=== PATIENT | female | born 1950 | race Caucasian/White ===

== ENCOUNTER → 2019-02-01 12:48 | Outpatient (CLI) | payer OTHER, MEDICAID, SELFPAY ==
--- NOTE | 2019-02-01 | DI.RAD.S_ITS ---
PROCEDURE: FL BARIUM SWALLOW INDICATIONS: SCLERODERMA COMPARISON: [facility], , BARIUM SWALLOW, 11/06/2014, 14:12. [facility], , BARIUM SWALLOW WITH SPEECH, 08/29/2013, 14:45. [facility], CR, XR PELVIS WITH LATERAL HIP RIGHT, 11/05/2018, 14:54. FINDINGS: Function: There is mild esophageal dysmotility. Moderate gastroesophageal reflux was elicited. There is obstruction of a calibrated barium tablet in the distal esophagus just above the gastroesophageal junction. Morphology: Air-contrast images demonstrate normal mucosal morphology. Single contrast views show no esophageal extrinsic mass effects, or diverticula. There is a short segment focal stricture in the distal esophagus causing obstruction of the penetrated barium pill. A small sliding hiatal hernia is noted, as seen on the last exam. Limited images of the stomach demonstrate normal appearance. IMPRESSION: 1. There is short segment stricture of the distal esophagus causing obstruction of the calibrated barium pill. This is more severe compared to the last exam dated 11/06/2014. A EGD is suggested for followup. 2. Mild esophageal dysmotility. 3. Moderate gastroesophageal reflux 4. Small hiatal hernia. Dictated by: Nancy Lowry M.D. on 02/01/2019 at 15:03 Approved by: Nancy Lowry M.D. on 02/01/2019 at 15:09
== END ==
PROVIDERS: Family Provider Family Medicine; PCP Family Medicine; Visit Provider Internal Medicine Rheumatology
DX: M34.9 Systemic sclerosis, unspecified (principal); K22.4 Dyskinesia of esophagus; K21.9 Gastro-esophageal reflux disease without esophagitis; K44.9 Diaphragmatic hernia without obstruction or gangrene
CPT/HCPCS: 74220

== ENCOUNTER 2019-06-29 13:32 | Emergency (ER) | payer OTHER, MEDICAID, SELFPAY ==
[2019-06-29 13:42] VITALS: BP 115/41; PULSE 87; RESP 16; TEMP 37; O2SAT 100; BMI 22.8
--- NOTE | 2019-06-29 14:23 | DI.US.S_ITS ---
ULTRASOUND OF RIGHT BREAST: 06/29/2019 CLINICAL: Rt breast pain and redness with swelling. Clinical exam demonstrated firmness as well. No prior exams were available for comparison. Real-time ultrasound of the right breast was performed. Christopher scale images of the real-time examination were reviewed. No abnormalities were seen sonographically in the right breast. There is mild diffuse skin thickening. Do findings to suggest disturbed parenchymal echotexture. No focal fluid collection or mass lesion. Right breast implant limits evaluation of the deeper tissues of the right breast. IMPRESSION: INCOMPLETE: NEEDS ADDITIONAL IMAGING EVALUATION There is minimal diffuse skin thickening but no abnormality seen in the right breast to correspond with the area of clinical concern and pain, however, clinical followup is recommended given reported history of redness, pain, and diffuse firmness that may be related to her breast implant. Patient is going to receive a course of antibiotics for presumed diagnosis of mastitis/cellulitis. She will return in approximately 4 weeks to document resolution of findings and for completion of her diagnostic imaging as she needs to have a bilateral diagnostic mammogram. FIndings and recommendations were discussed with Dr. Wright of the emergency department at 1610 hrs. This exam was interpreted at Station ID: [id number]. Electronically Signed By: Jasiel Finley M.D. aty/:06/29/2019 16:51:55 letter sent: Additional Imaging Needed Ultrasound BI-RADS: 0 Indeterminate
[2019-06-29 14:29] LABS: Add Manual Diff / Slide Review NO; Basophils Absolute Auto 200 /uL (0-100); Eosinophils Absolute Auto 100 /uL (0-450); Eosinophils Percent Auto 0.7 % (2-4); Hematocrit 38.6 % (36-46); Lymphocytes Absolute Auto 2300 /uL (1100-4500); Lymphocytes Percent Auto 25.1 % (25-40); Mean Corpuscular HGB Conc 33.8 % (30-36); Mean Corpuscular Hemoglobin 30.4 PG (26-34); Mean Corpuscular Volume 90.1 fL (80-100); Monocytes Absolute Auto 1000 /uL (0-900); Monocytes Percent Auto 11.2 % (3-14); Neutrophils Absolute Auto 5500 /uL (1500-7000); Platelet Count 159 X10^3/uL (150-400); Red Blood Cell Count 4.28 X10^6/uL (4.0-5.2); Red Cell Distribution Width 12.7 % (11.6-14.8)
[2019-06-29 14:35] LABS: Alanine Aminotransferase 18 IU/L (9-52); Albumin Globulin Ratio 1.4 (1.0-2.8); Alkaline Phosphatase 65 U/L (38-126); Aspartate Aminotransferase 20 IU/L (14-36); Bilirubin Total 0.5 mg/dL (0.2-1.3); Blood Urea Nitrogen 13 mg/dL (7-17); Calcium 8.9 mg/dL (8.4-10.2); Carbon Dioxide 28 mmol/L (22-32); Chloride 103 mmol/L (98-107); Estimated Glomerular Filt Rate > 60.0 mL/min (>60); Globulin 2.8 g/dL (1.7-4.1); Glucose 104 mg/dL (80-110); HEMOLYSIS 17 (0-50); Potassium 4.1 mmol/L (3.4-5.1); Sodium 140 mmol/L (137-145); Total Protein 6.8 g/dL (6.3-8.2)
[2019-06-29] MEDS: KETOROLAC 60 MG/2 ML VIAL 30 MG IV (14:49)
[2019-06-29] MEDS: SODIUM CHLORIDE 0.9% 1,000 ML 1000 ML IV (14:49)
--- NOTE | 2019-06-29 15:07 | ED_ITS ---
HPI - Skin/Abscess/Foreign Bdy <Leonela GoodenFREDRICK - Last Filed: 07/01/19 14:18> General Chief complaint: Skin/Abscess/Foreign Body Stated complaint: right breast is swelling and lots of pain Time Seen by Provider: 06/29/19 13:57 Source: patient Mode of arrival: ambulatory Limitations: no limitations History of Present Illness HPI narrative: 69-year-old female with history of scleroderma and breast implants (30 yrs ago), presents emergency department today complaining of right breast swelling, redness, increased warmth, and pain starting 2 days ago. She states the pain is a 10/10 dull ache that is worse with palpation and movement. She took tramadol last night but did not have any pain relief. She reported associated chills but no fevers. She denies nipple discharge, trauma, vomiting, abdominal pain, chest pain, shortness of breath, syncope, malaise, dysuria, vaginal discharge, or change in bowel or bladder habits. She stated she recently finished as Solu-Medrol pack about 3 days. MD complaint: discoloration Onset (ago): day(s) Location: chest (R breast) Severity: severe Severity scale (1-10): 10 Quality: aching Pain Consistency: constant Relieving factors: none Exacerbating factors: movement Context: none Associated symptoms: chills Related Data Home Medications Medication Instructions Recorded Confirmed baclofen 10 mg PO DAILY 06/29/19 06/29/19 diclofenac sodium 1 applic TOPICAL DIRECTED 06/29/19 06/29/19 divalproex 250 mg PO TID 06/29/19 06/29/19 escitalopram oxalate 20 mg PO DAILY 06/29/19 06/29/19 estradiol 1 patch TRANSDERMAL QWEEK 06/29/19 06/29/19 levothyroxine 50 mcg PO DAILY 06/29/19 06/29/19 oxycodone 5 mg PO PRN PRN 06/29/19 06/29/19 tramadol 50 mg PO Q4H PRN 06/29/19 06/29/19 zolpidem 10 mg PO BEDTIME 06/29/19 06/29/19 Previous Rx's Medication Instructions Recorded clindamycin HCl 450 mg PO TID 10 Days #90 cap 06/29/19 oxycodone-acetaminophen [Percocet] 1 tab PO Q4-6H PRN #10 tab 06/29/19 Allergies Allergy/AdvReac Type Severity Reaction Status Date / Time No Known Drug Allergies Allergy Verified 06/29/19 13:42 Review of Systems <FREDRICK Turner - Last Filed: 07/01/19 14:18> Review of Systems REVIEW OF SYSTEMS: GENERAL: Denies fever or chills. HENT: No head trauma, hearing loss or sore throat. EYES: No loss of vision, double vision, eye pain, or irritation. CHEST: Complains of right breast swelling, see HPI. CARDIOVASCULAR: No chest pain or syncope. RESPIRATORY: No shortness of breath or cough. GASTROINTESTINAL: No nausea, vomiting, diarrhea, or constipation. GENITOURINARY: No flank pain or dysuria. MUSCULOSKELETAL: No pain, weakness, or deformities. INTEGUMENTARY: Complains of redness, denies lesions or pruritus. NEURO: No numbness, tingling, memory loss, or confusion. PSYCH: No behavior or mood changes. PFSH <FREDRICK Turner - Last Filed: 07/01/19 14:18> Medical History Scleroderma (Acute) Social History Smoking Status: Never smoker Social History Smoking Status: Never smoker Exam <FREDRICK Turner - Last Filed: 07/01/19 14:18> Initial Vital Signs Initial Vital Signs: Vital Signs Temperature 98.6 F 06/29/19 13:42 Pulse Rate 87 06/29/19 13:42 Respiratory Rate 16 06/29/19 13:42 Blood Pressure 115/41 L 06/29/19 13:42 Pulse Oximetry 100 06/29/19 13:42 PHYSICAL EXAMINATION: GENERAL: Well groomed, alert, and cooperative. is at bedside during the examination. Answers questions promptly and appropriately. Vital signs noted. HENT: Normocephalic, atraumatic. Hearing intact. Oral mucosa is pink and moist. EYES: Conjunctiva pink, sclera white, no periorbital swelling. CHEST: Normal to inspection and without deformities. BREAST: Enlarged right breast, erythema noted to lateral and inferior aspect of the breast From 1200 to 800, tissue was hard to palpation without noticeable masses. Patient reported tenderness with palpation. No nipple discharge or discoloration, no lesions, no ulcerations, or rashes. CARDIOVASCULAR: S1 and S2 sounds normal. Regular rate and rhythm, no murmurs, clicks, or bruits. No pedal edema. RESPIRATORY: Normal respiratory rate, trachea midline, airway patent. No stridor, nasal flaring or accessory muscle use. Lungs are clear in all celaya without wheeze, rhonchi, or crackles. GASTROINTESTINAL: Bowel sounds normoactive. Abdomen is soft and non-tender. No organomegaly. MUSCULOSKELETAL: Normal gait and coordination. Equal tone and mass bilaterally. EXTREMITIES: CMS intact. Moves all extremities. SKIN: Warm, dry, soft, appropriate color for ethnicity. No lesions, rashes, or wounds. NEURO: Alert and Oriented X 3. Good coordination. No ataxia, or sensory deficits, or cognitive issues. PSYCH: Appropriate affect and mood. <Nena Wright DO - Last Filed: 07/03/19 18:14> Initial Vital Signs Initial Vital Signs: Vital Signs Temperature 98.6 F 06/29/19 13:42 Pulse Rate 87 06/29/19 13:42 Respiratory Rate 16 06/29/19 13:42 Blood Pressure 115/41 L 06/29/19 13:42 Pulse Oximetry 100 06/29/19 13:42 Course <FREDRICK Turner - Last Filed: 07/01/19 14:18> Orders Ordered: Discontinued Medications Sodium Chloride (Normal Saline 0.9%) 1,000 mls @ 1,000 mls/hr IV BOLUS ONE Stop: 06/29/19 15:22 Last Infusion: 06/29/19 16:51 Dose: 0 mls/hr Admin: 06/29/19 14:49 Dose: 1,000 mls/hr Clindamycin Phosphate (Cleocin) 600 mg in 50 mls @ 50 mls/hr IV NOW ONE Stop: 06/29/19 16:01 Last Infusion: 06/29/19 16:51 Dose: 0 mls/hr Admin: 06/29/19 15:08 Dose: 50 mls/hr Ketorolac Tromethamine (Toradol) 30 mg IV NOW ONE Stop: 06/29/19 14:24 Last Admin: 06/29/19 14:49 Dose: 30 mg Morphine Sulfate (Morphine) 4 mg IV NOW ONE Stop: 06/29/19 15:34 Last Admin: 06/29/19 15:44 Dose: 4 mg Consultations Consultation #1: Initially radiology as clarified that he was unable to fully interpret a breast ultrasound Rony mammogram. Spoke with mammogram services, they reported that patient was could only schedule a mammogram as an outpatient and must have prior studies sent to the department before her testing. Dr. Wright then spoke with Radiology requesting that an ultrasound be done to look for cysts or abscesses, with the understanding that a mammogram ask be completed a later date rule out malignancy. Patient was instructed about the importance of a followup mammogram within the next few weeks, she understood and will be in communication with her primary care provider. She was also given contact information for [facility] mammogram services to schedule an appointment herself. Time: 15:00 Consultation #2: Consultation occurred with Dr. Wright about diagnostics and plan of care. Time: 14:00 Vital Signs - 8 hr 06/29/19 13:42 06/29/19 16:00 06/29/19 17:11 Temperature 98.6 F Pulse Rate 87 75 84 Respiratory Rate 16 16 Blood Pressure 115/41 L 105/83 Blood Pressure [Left Arm] 113/73 Pulse Oximetry 100 95 98 <Nena Wright, DO - Last Filed: 07/03/19 18:14> Orders Ordered: Discontinued Medications Sodium Chloride (Normal Saline 0.9%) 1,000 mls @ 1,000 mls/hr IV BOLUS ONE Stop: 06/29/19 15:22 Last Infusion: 06/29/19 16:51 Dose: 0 mls/hr Admin: 06/29/19 14:49 Dose: 1,000 mls/hr Clindamycin Phosphate (Cleocin) 600 mg in 50 mls @ 50 mls/hr IV NOW ONE Stop: 06/29/19 16:01 Last Infusion: 06/29/19 16:51 Dose: 0 mls/hr Admin: 06/29/19 15:08 Dose: 50 mls/hr Ketorolac Tromethamine (Toradol) 30 mg IV NOW ONE Stop: 06/29/19 14:24 Last Admin: 06/29/19 14:49 Dose: 30 mg Morphine Sulfate (Morphine) 4 mg IV NOW ONE Stop: 06/29/19 15:34 Last Admin: 06/29/19 15:44 Dose: 4 mg Vital Signs - 8 hr 06/29/19 13:42 06/29/19 16:00 06/29/19 17:11 Temperature 98.6 F Pulse Rate 87 75 84 Respiratory Rate 16 16 Blood Pressure 115/41 L 105/83 Blood Pressure [Left Arm] 113/73 Pulse Oximetry 100 95 98 MDM - Skin/Abscess/Foreign Bdy <Leonela FREDRICK Gooden - Last Filed: 07/01/19 14:18> Medical Records Attestation: I reviewed the patient's medical records. Lab Data Attestation: I reviewed the patient's lab results. Result diagrams: 06/29/19 14:15 06/29/19 14:15 Lab Results 06/29/19 06/29/19 Range/Units 14:15 14:15 WBC 9.0 (4.5-11.0) X10^3/uL RBC 4.28 (4.0-5.2) X10^6/uL Hgb 13.0 (12.0-16.0) g/dL Hct 38.6 (36-46) % MCV 90.1 (80-100) fL MCH 30.4 (26-34) PG MCHC 33.8 (30-36) % RDW 12.7 (11.6-14.8) % Plt Count 159 (150-400) X10^3/uL Neut % (Auto) 61.0 (50-75) % Lymph % (Auto) 25.1 (25-40) % [place] % (Auto) 11.2 (3-14) % Eos % (Auto) 0.7 L (2-4) % Baso % (Auto) 2.0 (0-2) % Neut # (Auto) 5500 (4628-4406) /uL Lymph # (Auto) 2300 (5092-3644) /uL [place] # (Auto) 1000 H (0-900) /uL Eos # (Auto) 100 (0-450) /uL Baso # (Auto) 200 H (0-100) /uL Sodium 140 (137-145) mmol/L Potassium 4.1 (3.4-5.1) mmol/L Chloride 103 (98-107) mmol/L Carbon Dioxide 28 (22-32) mmol/L BUN 13 (7-17) mg/dL Creatinine 0.50 L (0.52-1.04) mg/dL Estimated GFR > 60.0 (>60) mL/min BUN/Creatinine Ratio 26.0 H (6-22) Glucose 104 (80-110) mg/dL Calcium 8.9 (8.4-10.2) mg/dL Total Bilirubin 0.5 (0.2-1.3) mg/dL AST 20 (14-36) IU/L ALT 18 (9-52) IU/L Alkaline Phosphatase 65 (38-126) U/L Total Protein 6.8 (6.3-8.2) g/dL Albumin 4.0 (3.5-5.0) g/dL Globulin 2.8 (1.7-4.1) g/dL Albumin/Globulin Ratio 1.4 (1.0-2.8) Imaging Data Breast US: Radiologist's impression: An official report of the rest ultrasound was not submitted as Radiology stated he would need a mammogram to fully interpreted, however he call and talk to Dr. Wright, stating that they did not appear to be any abscess or cyst formation that was seen on the ultrasound. These findings and limitations were discussed with the patient and her . MDM Narrative Medical decision making narrative: Differential includes mastitis (most likely due short onset of symptoms, significant erythema and swelling, increased warmth, increased pain with palpation), rupture of breast implant however swelling and inflammation indicate associated infection, allergic reaction to plastic implant (less likely due to lack of perforated, and the rapid onset), and malignancy including inflammatory breast cancer (less likely due to rapid onset, however we cannot rule this out and she is able to get a mammogram which cannot be done in the emergency department, she is at increased risk because she takes caused region, it is more difficult to renal ultrasound with an implant, but my suspicion is decreased due to lack of lesions or nipple discharge.) Extensive conversation was had with the patient and her about the importance of obtaining an ultrasound as soon as possible. Patient's family verbalized understanding. We discussed that the most immediately dangerous thing for her at this time would be to leave an infection untreated, thus clindamycin was prescribed due to poor visualization of breath and concern for infected implant. I explained to patient a could not rule out a mass without mammogram/ Strict return precautions were given to patient and follow-up instructions discussed. <Nena Wright, DO - Last Filed: 07/03/19 18:14> Lab Data Lab Results 06/29/19 06/29/19 Range/Units 14:15 14:15 WBC 9.0 (4.5-11.0) X10^3/uL RBC 4.28 (4.0-5.2) X10^6/uL Hgb 13.0 (12.0-16.0) g/dL Hct 38.6 (36-46) % MCV 90.1 (80-100) fL MCH 30.4 (26-34) PG MCHC 33.8 (30-36) % RDW 12.7 (11.6-14.8) % Plt Count 159 (150-400) X10^3/uL Neut % (Auto) 61.0 (50-75) % Lymph % (Auto) 25.1 (25-40) % [place] % (Auto) 11.2 (3-14) % Eos % (Auto) 0.7 L (2-4) % Baso % (Auto) 2.0 (0-2) % Neut # (Auto) 5500 (9726-5806) /uL Lymph # (Auto) 2300 (2917-1189) /uL [place] # (Auto) 1000 H (0-900) /uL Eos # (Auto) 100 (0-450) /uL Baso # (Auto) 200 H (0-100) /uL Sodium 140 (137-145) mmol/L Potassium 4.1 (3.4-5.1) mmol/L Chloride 103 (98-107) mmol/L Carbon Dioxide 28 (22-32) mmol/L BUN 13 (7-17) mg/dL Creatinine 0.50 L (0.52-1.04) mg/dL Estimated GFR > 60.0 (>60) mL/min BUN/Creatinine Ratio 26.0 H (6-22) Glucose 104 (80-110) mg/dL Calcium 8.9 (8.4-10.2) mg/dL Total Bilirubin 0.5 (0.2-1.3) mg/dL AST 20 (14-36) IU/L ALT 18 (9-52) IU/L Alkaline Phosphatase 65 (38-126) U/L Total Protein 6.8 (6.3-8.2) g/dL Albumin 4.0 (3.5-5.0) g/dL Globulin 2.8 (1.7-4.1) g/dL Albumin/Globulin Ratio 1.4 (1.0-2.8) Discharge Plan Departure Patient Disposition: Home Clinical Impression: Acute mastitis Discharge Date/Time: 06/29/19 17:12 Interventions: ED Discharge Assessment Last Done: 06/29/19 17:11 Instructions: DI for Mastitis Activity Restrictions/Additional Instructions: Thank you for entrusting me with your care today. As discussed, it appears that you have an infection in your right breast, I prescribed you antibiotics and pain medication. Please take these antibiotics until they are complete. Due to the ultrasound limited ability to examine deep tissues, I as well as the radiologist recommend that you get a mammogram within the next 4 weeks to further evaluate your breast (the ultrasound could not evaluate for lumps or masses). Additionally, follow up with her primary care provider in the next week for re-evaluation. Return to the emergency department if he develops fevers, increased swelling, uncontrollable vomiting, chest pain, shortness of breath, or dizziness. Prescriptions: New clindamycin HCl 150 mg capsule 450 mg PO TID 10 Days Qty: 90 RF: 0 oxycodone-acetaminophen [Percocet] 5-325 mg tablet 1 tab PO Q4-6H PRN (Reason: pain) Qty: 10 RF: 0 No Action divalproex 250 mg Tablet,Delayed Release (Dr/Ec) 250 mg PO TID RF: 0 tramadol 50 mg Tablet 50 mg PO Q4H PRN (Reason: pain) RF: 0 baclofen 10 mg Tablet 10 mg PO DAILY RF: 0 levothyroxine 50 mcg Tablet 50 mcg PO DAILY RF: 0 zolpidem 10 mg Tablet 10 mg PO BEDTIME RF: 0 estradiol 0.1 mg/24 hr Patch Weekly 1 patch TRANSDERMAL QWEEK RF: 0 escitalopram oxalate 20 mg Tablet 20 mg PO DAILY RF: 0 diclofenac sodium 1 % Gel 1 applic TOPICAL DIRECTED RF: 0 oxycodone 5 mg Tablet 5 mg PO PRN PRN (Reason: flare ups) RF: 0 Referrals: Shayan Aragon MD [Primary Care Provider] - <Nena Wright DO - Last Filed: 07/03/19 18:14> Cosign ED Attending Cosignature Attestation: I was immediately available in the department for consultation, case was reviewed. Patient ultrasound findings were discussed with Dr. Finley. Suspect mastitis been a patient age 69 after treatment with antibiotic she also needs a mammogram for evaluation for cancer. Patient was made aware of this. This documentation has been reviewed and I agree with assessment and plan. Supervised by Nena Wright DO
[2019-06-29] MEDS: CLINDAMYCIN 600 MG/50 ML PIGGYBACK 50 MG IV (15:08)
[2019-06-29] MEDS: MORPHINE 4 MG/ML INJ IV (15:44)
[2019-06-29 16:00] VITALS: BP 113/73; PULSE 75; O2SAT 95
[2019-06-29 17:11] VITALS: BP 105/83; PULSE 84; RESP 16; O2SAT 98
--- NOTE | 2019-07-02 16:05 | PC.NURSE ---
Pt called back after receiving Leonela Danielsmalathi's voice mail. States she is still in pain but is feeling better overall. Verbalized understanding of need to return worsening and the need for a follow up mamogram. She states she has an appointment w/ Dr. Aragon.
== END 2019-06-29 17:12 | disposition home or self-care (01) ==
PROVIDERS: Emergency Provider Nurse Practitioner; Family Provider Family Medicine; PCP Family Medicine
DX: N61.0 Mastitis without abscess (principal)
CPT/HCPCS: 36591; 76642; 80053; 85025; 96365; 96366; 96375; 99283; 99284; J1885; J2270

== ENCOUNTER → 2019-11-07 13:57 | Outpatient (CLI) | payer OTHER, MEDICAID, SELFPAY ==
--- NOTE | 2019-11-07 | DI.US.S_ITS ---
PROCEDURE: US PELVIC COMPLETE INDICATIONS: PELVIC PAIN TECHNIQUE: Real-time scanning was performed of the pelvic organs, with image documentation. Additional endovaginal scanning was necessary due to incomplete visualization of the adnexal and endometrial structures by transabdominal scanning. COMPARISON: [facility], , PELVIC COMPLETE, 02/18/2016, 16:38. FINDINGS: Transabdominal scanning: Limited scanning through the kidneys shows no hydronephrosis. No pathologic free abdominal or pelvic fluid. Endovaginal scanning: Uterus: Surgically absent. Ovaries: Ovaries Not requested. identified. Correlate with surgical history. No adnexal masses seen. IMPRESSION: No source for pelvic pain identified. If indicated, CT or MRI of the pelvis could be performed. Dictated by: Farooq STEEN Interpreted: Omid Sanchez MD on 11/07/2019 at 16:47 Approved by: Omid Sanchez M.D. on 11/08/2019 at 9:11
== END ==
PROVIDERS: Family Provider Family Medicine; PCP Family Medicine; Visit Provider Family Medicine
DX: R10.2 Pelvic and perineal pain (principal); Z90.710 Acquired absence of both cervix and uterus
CPT/HCPCS: 76830; 76856

== ENCOUNTER → 2019-12-30 12:47 | Outpatient (CLI) | payer MEDICARE, MEDICAID, SELFPAY ==
--- NOTE | 2019-12-30 | DI.MG.S_ITS ---
BILATERAL DIGITAL DIAGNOSTIC MAMMOGRAM 3D/2D WITH AUGMENTATION: 12/30/2019 CLINICAL: Bilateral breast pain. No prior exams were available for comparison. The tissue of both breasts is heterogeneously dense. This may lower the sensitivity of mammography. No significant masses, calcifications, or other findings are seen in either breast. IMPRESSION: There is no abnormality seen in either breast to correspond with the pain in the outer aspects, however, clinical followup is recommended. The implants demonstrate no evidence of rupture. There is no mammographic evidence of malignancy. A 1 year screening mammogram is recommended. This exam was interpreted at Station ID: [id number]. NOTE: For mammograms, a report in lay terms will be sent to the patient. Approximately 15% of breast malignancies will not be visualized mammographically. In the management of a palpable breast mass, a negative mammogram must not discourage biopsy of a clinically suspicious lesion. Electronically Signed By: Shayan Vasquez M.D. ddreinier/:12/30/2019 13:51:50 letter sent: Clinical Evaluation ACR BI-RADS Category 2: Benign Finding(s) 3342F
== END ==
PROVIDERS: Family Provider Family Medicine; PCP Family Medicine; Visit Provider Family Medicine
DX: R92.2 Inconclusive mammogram (principal); N64.4 Mastodynia; Z98.82 Breast implant status
CPT/HCPCS: 77066; G0279

== ENCOUNTER → 2020-08-08 13:09 | Outpatient (CLI) | payer MEDICARE, MEDICAID, SELFPAY ==
--- NOTE | 2020-08-08 | DI.RAD.S_ITS ---
PROCEDURE: XR CERVICAL SPINE 4V OR 5V INDICATIONS: Cervicalgia TECHNIQUE: Five views of the cervical spine were acquired. COMPARISON: None. FINDINGS: Bones: No fractures or dislocations to the T1 level. There is anterior cervical fusion from C4 through C7 with disc spacer placement. The plate and screws appear in appropriate position. Alignment of the upper cervical spine appears normal. There is limited range of motion between flexion and extension, with preserved normal bony alignment. No suspicious bony lesions. Soft tissues: Prevertebral soft tissues are normal in thickness. IMPRESSION: 1. Expected appearance of C4 through C7 anterior fusion. 2. Preserved alignment with flexion and extension. Dictated by: Tiffany Burleson M.D. on 08/08/2020 at 18:30 Approved by: Tiffany Burleson M.D. on 08/08/2020 at 18:32
== END ==
PROVIDERS: Family Provider Family Medicine; PCP Family Medicine; Referring Provider Family Medicine; Visit Provider Neurological Surgery
DX: M54.2 Cervicalgia (principal); Z98.1 Arthrodesis status
CPT/HCPCS: 72050

== ENCOUNTER → 2020-08-24 16:49 | Outpatient (CLI) | payer MEDICARE, MEDICAID, SELFPAY ==
--- NOTE | 2020-08-24 | DI.MRI.S_ITS ---
PROCEDURE: MR CERVICAL SPINE WO CON INDICATIONS: CERVICAL RADICULOPATHY TECHNIQUE: Noncontrast sagittal T1 spin echo and T2 fast spin echo, sagittal STIR, foraminal oblique sagittal T2 fast spin echo, and axial gradient echo or T2 fast spin echo through the cervical spine. COMPARISON: [facility], , C-SPINE WITHOUT CONTRAST, 01/21/2018, 18:40. FINDINGS: Image quality: Excellent. Alignment and Curvature: Postoperative changes with ACDF from C4-C7. Expected postoperative alignment and straightening of the normal cervical lordosis. Bone Marrow: Multilevel degenerative endplate sclerosis and spurring. Diffuse facet arthropathy. Spinal Cord: Visualized spinal cord has normal size and signal. No cerebellar tonsillar herniation. Paraspinous Soft Tissues: No paravertebral masses. Prevertebral soft tissues are normal in thickness. C2-C3: Normal appearance. C3-C4: Minimal bilateral foraminal narrowing. No canal stenosis. No interval change. C4-C5: No canal stenosis. No definite foraminal stenosis. C5-C6: Mild canal narrowing. Mild left foraminal stenosis which is slightly progressed. No definite right foraminal narrowing. C6-C7: No canal narrowing. No foraminal stenosis. C7-T1: No canal stenosis. Mild left foraminal narrowing. No right foraminal stenosis. IMPRESSION: Overall, slight interval progression in left-sided C5-C6 foraminal narrowing otherwise grossly stable examination. Mild cervical spondylosis and facet arthropathy, and postsurgical changes from C4-C7. Dictated by: Scott Connell M.D. on 08/27/2020 at 9:03 Approved by: Scott Connell M.D. on 08/27/2020 at 10:15
== END ==
PROVIDERS: Family Provider Family Medicine; PCP Family Medicine; Referring Provider Neurological Surgery; Visit Provider Neurological Surgery
DX: M54.2 Cervicalgia (principal); M47.22 Other spondylosis with radiculopathy, cervical region
CPT/HCPCS: 72141

== ENCOUNTER → 2021-04-05 10:32 | Outpatient (CLI) | payer MEDICARE, MEDICAID, SELFPAY ==
[2021-04-05 11:47] LABS: COVID19 -Nasal RAPID Negative (Negative)
== END ==
PROVIDERS: Family Provider Family Medicine; PCP Family Medicine; Referring Provider Internal Medicine; Visit Provider Internal Medicine
DX: Z20.822 Contact with and (suspected) exposure to COVID-19 (principal)
CPT/HCPCS: 87635; C9803

== ENCOUNTER → 2021-04-05 10:33 | Outpatient (CLI) | payer MEDICARE, MEDICAID, SELFPAY ==
--- NOTE | 2021-04-10 09:26 | PM.PFT.1 ---
Pulmonary Function Test Referral & Results Date Patient Seen: 04/05/21 Requesting provider: Shayan Aragon Indication: Systemic sclerosis Results: The spirometry demonstrates an FVC of 3.59 L which is 116% of predicted. The FEV1 was measured at 2.32 L which is 99% of predicted. The FEV1/FVC ratio was 65 which is 85% of predicted. No bronchodilator was administered, patient declined Lung volumes show an SVC of 3.59 L which is 121% of predicted. The diffusing capacity was measured at 18.12 which is 70% of predicted. No hemoglobin value was provided, so no correction for potential anemia could be made, if appropriate. The maximum voluntary ventilation was reduced Interpretation: This study demonstrates normal spirometry with a mild to moderate reduction in diffusing capacity Compared to PFTs performed in October 2015, current study is essentially unchanged
== END ==
PROVIDERS: Family Provider Family Medicine; PCP Family Medicine; Referring Provider Family Medicine; Visit Provider Family Medicine
DX: M34.9 Systemic sclerosis, unspecified (principal); R94.2 Abnormal results of pulmonary function studies; J98.8 Other specified respiratory disorders; Z87.891 Personal history of nicotine dependence; Z20.822 Contact with and (suspected) exposure to COVID-19
CPT/HCPCS: 87635; 94010; 94726; 94729; C9803

== ENCOUNTER → 2021-06-05 10:16 | Outpatient (CLI) | payer MEDICARE, MEDICAID, SELFPAY ==
[2021-06-05 20:20] LABS: Alanine Aminotransferase 18 IU/L (<35); Albumin 3.7 g/dL (3.5-5.0); Albumin Globulin Ratio 1.6 (1.0-2.8); Alkaline Phosphatase 58 U/L (38-126); Aspartate Aminotransferase 24 IU/L (14-36); Bilirubin Total 0.4 mg/dL (0.2-1.3); Bilirubin Unconjugated 0.1 mg/dL (0.0-1.1); Cholesterol 196 mg/dL (140-199); Globulin 2.3 g/dL (1.7-4.1); HDL Cholesterol 48 mg/dL (40-60); HEMOLYSIS 16 (0-50); LDL Cholesterol Calculated 111 mg/dL (<100); Triglycerides 186 mg/dL (35-150)
[2021-06-05 20:49] LABS: TSH w/ Reflex to FT4 < 0.02 uIU/mL (0.47-4.68)
[2021-06-05 21:27] LABS: Free T4, Direct Thyroxine 2.31 ng/dL (0.78-2.19)
== END ==
PROVIDERS: Family Provider Family Medicine; PCP Family Medicine; Visit Provider Family Medicine
DX: E03.9 Hypothyroidism, unspecified (principal); M54.9 Dorsalgia, unspecified; E78.5 Hyperlipidemia, unspecified
CPT/HCPCS: 80061; 80076; 84439; 84443

== ENCOUNTER → 2021-12-03 12:06 | Outpatient (CLI) | payer MEDICARE, MEDICAID, SELFPAY ==
[2021-12-03 19:20] LABS: Add Manual Diff / Slide Review NO; Basophils Absolute Auto 100 /uL (0-100); Basophils Percent Auto 1.2 % (0-2); Eosinophils Absolute Auto 100 /uL (0-450); Eosinophils Percent Auto 1.6 % (2-4); Hemoglobin 13.8 g/dL (12.0-16.0); Lymphocytes Absolute Auto 2400 /uL (1100-4500); Mean Corpuscular HGB Conc 33.6 % (30-36); Mean Corpuscular Hemoglobin 30.5 PG (26-34); Mean Corpuscular Volume 90.8 fL (80-100); Monocytes Absolute Auto 600 /uL (0-900); Monocytes Percent Auto 8.8 % (3-14); Neutrophils Absolute Auto 4000 /uL (1500-7000); Neutrophils Percent Auto 55.4 % (50-75); Platelet Count 145 X10^3/uL (150-400); Red Blood Cell Count 4.51 X10^6/uL (4.0-5.2); Red Cell Distribution Width 13.1 % (11.6-14.8); White Blood Cell Count 7.3 X10^3/uL (4.5-11.0)
[2021-12-03 19:28] LABS: Alanine Aminotransferase 17 IU/L (<35); Albumin 4.1 g/dL (3.5-5.0); Albumin Globulin Ratio 1.7 (1.0-2.8); Alkaline Phosphatase 54 U/L (38-126); Aspartate Aminotransferase 23 IU/L (14-36); BUN Creatinine Ratio 20.9 (6-22); Bilirubin Total 0.4 mg/dL (0.2-1.3); Blood Urea Nitrogen 14 mg/dL (7-17); Calcium 9.4 mg/dL (8.4-10.2); Carbon Dioxide 35 mmol/L (22-32); Chloride 102 mmol/L (98-107); Cholesterol 194 mg/dL (140-199); Estimated Glomerular Filt Rate > 60.0 mL/min (>60); Globulin 2.4 g/dL (1.7-4.1); Glucose 101 mg/dL (80-110); HDL Cholesterol 50 mg/dL (40-60); HEMOLYSIS < 15 (0-50); LDL Cholesterol Calculated 86 mg/dL (<100); Potassium 4.2 mmol/L (3.4-5.1); Sodium 138 mmol/L (137-145); Total Protein 6.5 g/dL (6.3-8.2); Triglycerides 291 mg/dL (35-150)
[2021-12-03 19:54] LABS: TSH w/ Reflex to FT4 1.71 uIU/mL (0.47-4.68)
== END ==
PROVIDERS: Family Provider Family Medicine; PCP Physician Assistant Medical; Visit Provider Physician Assistant Medical
DX: E03.9 Hypothyroidism, unspecified (principal); G89.29 Other chronic pain; M34.9 Systemic sclerosis, unspecified; M54.2 Cervicalgia; M54.81 Occipital neuralgia; Z79.891 Long term (current) use of opiate analgesic
CPT/HCPCS: 80053; 80061; 84443; 85025

== ENCOUNTER → 2022-01-02 12:34 | Outpatient (CLI) | payer MEDICARE, MEDICAID, SELFPAY ==
[2022-01-02 19:38] LABS: Alanine Aminotransferase 22 IU/L (<35); Albumin 4.2 g/dL (3.5-5.0); Albumin Globulin Ratio 1.8 (1.0-2.8); Alkaline Phosphatase 56 U/L (38-126); Aspartate Aminotransferase 24 IU/L (14-36); BUN Creatinine Ratio 28.1 (6-22); Bilirubin Total 0.5 mg/dL (0.2-1.3); Blood Urea Nitrogen 16 mg/dL (7-17); Calcium 9.5 mg/dL (8.4-10.2); Carbon Dioxide 32 mmol/L (22-32); Chloride 104 mmol/L (98-107); Estimated Glomerular Filt Rate > 60.0 mL/min (>60); Globulin 2.4 g/dL (1.7-4.1); Glucose 89 mg/dL (80-110); HEMOLYSIS < 15 (0-50); Potassium 4.3 mmol/L (3.4-5.1); Sodium 141 mmol/L (137-145); Total Protein 6.6 g/dL (6.3-8.2)
== END ==
PROVIDERS: Family Provider Family Medicine; PCP Physician Assistant Medical; Visit Provider Physician Assistant Medical
DX: G47.00 Insomnia, unspecified (principal); M34.9 Systemic sclerosis, unspecified; R21 Rash and other nonspecific skin eruption; R42 Dizziness and giddiness; B35.1 Tinea unguium
CPT/HCPCS: 80053; 86617